=== PATIENT | female | born 1995 | race Two or more races ===

== ENCOUNTER 2023-12-21 11:03 | Emergency (ER) | payer OTHER ==
[~2023-12-21] VITALS: Ht 160 cm; Wt 63.6 kg
[2023-12-21 11:07] VITALS: BP 124/81; PULSE 92; RESP 18; TEMP 98.4; O2SAT 100
[2023-12-21] MEDS: ACETAMINOPHEN 325 MG TABLET PO ONE (12:24)
[2023-12-21] MEDS: IBUPROFEN 600 MG TABLET PO ONE (12:24)
== END 2023-12-21 12:49 | disposition home or self-care (01) ==
LOC: EMS 11:03
DX: S16.1XXA Strain of muscle, fascia and tendon at neck level, initial encounter (principal); M25.512 Pain in left shoulder; V43.52XA Car driver injured in collision with other type car in traffic accident, initial encounter; Y93.89 Activity, other specified; Y92.410 Unspecified street and highway as the place of occurrence of the external cause; Y99.8 Other external cause status
CPT/HCPCS: 99284